=== PATIENT | female | born 1955 ===

== ENCOUNTER 2016-11-03 17:55 | Emergency (ER) | payer OTHER ==
[2016-11-03 18:01] VITALS: BP 181/93; PULSE 71; RESP 16; TEMP 98; O2SAT 99
--- NOTE | 2016-11-03 19:14 | ED PDOC ---
Lower Extremity Pain/Injury Time Seen by Provider: 11/03/16 18:19 Chief Complaint (Nursing): Lower Extremity Problem/Injury Chief Complaint (Provider): Right ankle pain History Per: Patient History/Exam Limitations: no limitations Onset/Duration Of Symptoms: Mins Current Symptoms Are (Timing): Still Present Additional History Per: Patient Additional Complaint(s): The patient is a 61yo female, past medical history of lupus, arthritis, hypertension, presents to the ED for evaluation of right foot pain after injuring it prior to arrival. Patient states she tripped on a tree root and rolled her foot. She denies any numbness or tingling. Patient offers no additional medical complaints. Past Medical History Reviewed: Historical Data Vital Signs: Last Vital Signs Temp 98.0 F 11/03/16 17:59 Pulse 71 11/03/16 17:59 Resp 16 11/03/16 17:59 BP 181/93 H 11/03/16 17:59 Pulse Ox 99 11/03/16 17:59 - Medical History PMH: Arthritis, HTN Other PMH: lupus - Surgical History Surgical History: No Surg Hx - Family History Family History: States: No Known Family Hx - Home Medications Home Medications: Ambulatory Orders Medication Instructions Recorded Ibuprofen [Motrin Tab] 800 mg PO Q6H PRN #20 tab 11/03/16 - Allergies Allergies/Adverse Reactions: Allergies Allergy/AdvReac Type Severity Reaction Status Date / Time No Known Allergies Allergy Verified 11/03/16 17:59 Review of Systems Musculoskeletal: Positive for: Foot Pain (right) Neurological: Negative for: Weakness, Numbness Physical Exam - Reviewed Nursing Documentation Reviewed: Yes Vital Signs Reviewed: Yes - Physical Exam Appears: Positive for: Non-toxic, No Acute Distress Head Exam: Positive for: ATRAUMATIC, NORMAL INSPECTION, NORMOCEPHALIC Skin: Positive for: Warm Neck: Positive for: Supple Cardiovascular/Chest: Positive for: Regular Rate, Rhythm Respiratory: Negative for: Respiratory Distress Pulses-Dorsalis Pedis (R): 2+ Extremity: Positive for: Normal ROM, Tenderness (right lateral malleolus). Negative for: Deformity, Swelling Neurologic/Psych: Positive for: Alert, Oriented. Negative for: Motor/Sensory Deficits - ECG O2 Sat by Pulse Oximetry: 99 (RA) Pulse Ox Interpretation: Normal Medical Decision Making Medical Decision Making: Time: 1829 Impression: Right foot pain Plan: -- XR right foot -- Motrin 600 mg PO -- Lopressor 50 mg PO Reassess Time: 1850 XR as read by provider indicates a fracture. Podiatry consult placed. Scribe Attestation: Documented by Leny Landon acting as a scribe for KAYLEIGH Wooten Provider Attestation: All medical record entries made by the Scribe were at my direction and personally dictated by me. I have reviewed the chart and agree that the record accurately reflects my personal performance of the history, physical exam, medical decision making, and the department course for this patient. I have also personally directed, reviewed, and agree with the discharge instructions and disposition. Disposition - Clinical Impression Clinical Impression: Fracture of distal fibula - Patient ED Disposition Is Patient to be Admitted: No Counseled Patient/Family Regarding: Diagnosis, Need For Followup, Rx Given - Disposition Referrals: Micheal Aburto DPM [[facility]] - Disposition: Routine/Home Disposition Time: 21:37 Condition: GOOD Additional Instructions: Please call Dr. Aburto to make appointment. Prescriptions: Ibuprofen [Motrin Tab] 800 mg PO Q6H PRN #20 tab PRN Reason: Pain Instructions: Ankle Fracture (ED) Forms: [employer] (Tunisian) Print Language: ENGLISH
--- NOTE | 2016-11-03 21:23 | CP.PCM.CON ---
History of Present Illness - History of Present Illness History of Present Illness: Podiatry Consult or Dr. Aburto 61 year old female with PMHx including HTN, Lupus, and Rheumatoid Arthritis was seen at bedside for right ankle injury. Patient states that approximately 5pm this afternoon as she was walking outside, her leg got caught in a ground divet/ pothole and she twisted it. She was immediately unable to bear weight and was brought to [facility] ED by ambulance from site of injury. Pt reports that pain medications provided by ED physician has controlled the pain which she currently grades as a 4/10. Pt is concerned with the amount of swelling to the area. Currently icing area at time of interview. She denies any n/v/f/c/sob/cp. PMH: HTN, Lupus, and Rheumatoid Arthritis PSH: Left 1st metatarsal proximal osteotomy All: NKDA Social Hx: Admits to 1/10 of a pack tobacco use. Denies alcohol use and illicit drug use. Review of Systems - Review of Systems All systems: reviewed and no additional remarkable complaints except Past Patient History - CARDIAC Hx Hypertension: Yes - MUSCULOSKELETAL/RHEUMATOLOGICAL Hx Arthritis: Yes Meds Home Medications: Home Medication List Medication Instructions Recorded Confirmed Type Ibuprofen [Motrin Tab] 800 mg PO Q6H PRN #20 tab 11/03/16 Rx Allergies/Adverse Reactions: Allergies Allergy/AdvReac Type Severity Reaction Status Date / Time No Known Allergies Allergy Verified 11/03/16 17:59 Physical Exam - Constitutional Appears: Well, Non-toxic, No Acute Distress - Extremities Exam Additional comments: Right lower extremity exam: Vasc: DP and PT pulses graded 2/4. Skin temperature warm to warm proximal to distal. Non-pitting edema noted at level of ankle joint with focal localization at lateral malleoli. Ortho:Tenderness on palpation to right ankle. No tenderness to compression of calf. Pt guarding on active and passive ankle joint ROM. ROM limited due to guarding and swelling. Digital movement to verbal prompting. Pedal muscle strength in all 4 pedal muscle groups is 4/5 at this time Derm: No ecchymosis noted to the entire right lower extremity. No open wound, lesion, macerations, hyperpigmentations, nor hyperkeratosis were noted. Neuro: Gross protective sensation intact. - Neurological Exam Neurological exam: Alert, Oriented x3 - Psychiatric Exam Psychiatric exam: Normal Affect, Normal Mood Results - Vital Signs Recent Vital Signs: Last Vital Signs Temp 98.0 F 11/03/16 17:59 Pulse 71 11/03/16 17:59 Resp 16 11/03/16 17:59 BP 181/93 H 11/03/16 17:59 Pulse Ox 99 11/03/16 19:17 Assessment & Plan - Assessment and Plan (Free Text) Assessment: 61 year old female with right ankle isolated, non displaced, fibular fracture. Plan: Pt evaluated and treated. Chart, labs, and vitals reviewed. Discussed findings in detail with attending, Dr. Aburto, who endorsed the following plan. Radiographs reviewed-fracture noted to the right fibula, non-displaced. Applied Right LE dressed with modified Stafford compressive dressing with posterior splint. Pt to remain non-weightbearing with use of axillary crutches. Discussed with patient cause and treatment option for diagnosis ranging from conservative to surgical and potential terminal carman complications associated with her Rheumatoid arthritis after acute traumatic events. Pt aware of potential for exacerbations and potential development of ankle joint arthritis. Analgesic outpatient medication per ER physician, recommending Motrin. Pt to follow up with Dr. Aburto in office within 1 weeks time. - Date & Time Date: 11/03/16 Time: 22:00
--- NOTE | 2016-11-04 10:15 | RAD ---
PROCEDURE: Right Ankle Radiographs. HISTORY: lateral ankle pain, twisted COMPARISON: None FINDINGS: BONES: There is acute nondisplaced fracture at the right lateral malleolus/ distal right fibula. There are 2 screws seen at the proximal portion of the 1st metatarsal bone. JOINTS: Normal. No osteoarthritis. Ankle mortise maintained. Talar dome intact SOFT TISSUES: There is [id number] soft tissue swelling overlying the right lateral malleolus. OTHER FINDINGS: None. IMPRESSION: Acute fracture at the distal right fibula/ lateral malleolus associated with adjacent moderate soft tissue swelling.
== END 2016-11-03 22:16 | disposition home or self-care (01) ==
LOC: H.ER 17:55
DX: S82.832A Other fracture of upper and lower end of left fibula, initial encounter for closed fracture (principal); X50.9XXA Other and unspecified overexertion or strenuous movements or postures, initial encounter; Y92.480 Sidewalk as the place of occurrence of the external cause; I10 Essential (primary) hypertension; M32.9 Systemic lupus erythematosus, unspecified; Z79.899 Other long term (current) drug therapy